=== PATIENT | female | born 1985 | race Caucasian/White ===

== ENCOUNTER 2017-04-25 13:23 | Emergency (ER) | payer BC, MEDICAID, OTHER, SELFPAY ==
[2017-04-25] MEDS ORDERED: MORPHINE SULFATE 4 MG/ML, 1ML ONE (16:09)
[2017-04-25] MEDS ORDERED: ONDANSETRON 2MG/ML, 2ML ONE (16:09)
[2017-04-25] MEDS ORDERED: OXYcodone/APAP 5/325MG TABLET ONE (18:33)
[2017-04-28 14:08] LABS: HCG UR OBC PASS
[2017-04-29 12:06] LABS: BLOOD UREA NITROGEN 14 mg/dL (7-18)
== END 2017-04-25 18:48 ==
LOC: ED 13:23
DX: N30.90 Cystitis, unspecified without hematuria (principal); N83.02 Follicular cyst of left ovary; N83.01 Follicular cyst of right ovary
CPT/HCPCS: 36415; 76830; 80048; 81001; 81025; 82040; 85025; 87077; 87086; 87186

== ENCOUNTER → 2020-01-18 | Outpatient (CLI) | payer BC | END | disposition home or self-care (01) | LOC: RAD 15:25 | PROVIDERS: ATTEND Physician Assistant Surgical | DX: S93.411A Sprain of calcaneofibular ligament of right ankle, initial encounter (principal); X58.XXXA Exposure to other specified factors, initial encounter; Y93.89 Activity, other specified; Y92.89 Other specified places as the place of occurrence of the external cause; Y99.8 Other external cause status; R60.0 Localized edema ==